=== PATIENT | male | born 1980 | race Caucasian/White ===

== ENCOUNTER 2021-08-02 10:56 | Emergency (ER) | payer OTHER ==
[~2021-08-02] VITALS: Ht 172.7 cm; Wt 115.9 kg
[2021-08-02] MEDS ORDERED: GLIMEPIRIDE1 MG PO (12:31)
[2021-08-02] MEDS ORDERED: METFOMIN HYDRO850 MG PO (12:32)
[2021-08-02] MEDS ORDERED: NORVASC 10MG10 MG PO (12:32)
[2021-08-02] MEDS ORDERED: PRAVASTATIN SOD40 MG PO (12:32)
[2021-08-02] MEDS ORDERED: LISINOPRIL AND1 TA1 PO (12:32)
[2021-08-02] MEDS ORDERED: PRILOSEC OTC20 MG PO (12:33)
[2021-08-02 12:59] LABS: BASO # 0.03 K/mm3 (0.02-0.10); EOS # 0.08 K/mm3 (0.04-0.40); EOS % 1.1 % (0.0-4.0); HEMATOCRIT 45.3 % (42.0-52.0); HEMOGLOBIN 15.6 g/dL (13.5-18.0); LYMPH# 1.92 K/mm3 (1.50-4.00); MEAN CELL VOLUME 81 fl (78-100); MEAN CORPUSCULAR HEMOGLOBIN 28 pg (27-31); MEAN CORPUSCULAR HGB CONC 34 g/dL (33-37); MONO # 0.73 K/mm3 (0.20-0.80); NEU # 4.25 K/mm3 (1.40-6.50); PLATELET COUNT 255 K/mm3 (130-400); RED BLOOD COUNT 5.61 M/mm3 (4.20-5.60); RED CELL DISTRIBUTION WIDTH 11.8 % (11.5-14.5)
[2021-08-02 13:01] LABS: URINE WBC 0 /hpf (0-3)
[2021-08-02 13:18] LABS: ALBUMIN 4.5 g/dL (3.5-5.0); POTASSIUM 4.2 mmol/L (3.5-5.1)
[2021-08-02 13:20] LABS: CALCIUM 9.9 mg/dL (8.3-10.5)
[2021-08-02 13:21] LABS: TOTAL PROTEIN 7.4 g/dL (6.4-8.3)
[2021-08-02 13:22] LABS: URINE APPEARANCE CLEAR; URINE BILIRUBIN NEGATIVE (NEGATIVE); URINE BLOOD NEGATIVE (NEGATIVE); URINE COLOR YELLOW; URINE KETONE NEGATIVE (NEGATIVE); URINE LEUKOCYTE ESTERASE NEGATIVE (NEGATIVE); URINE NITRATE NEGATIVE (NEGATIVE); URINE PROTEIN(semi-quant) NEGATIVE (NEGATIVE); URINE UROBILINOGEN NORMAL (NORMAL)
[2021-08-02 13:23] LABS: TOTAL BILIRUBIN 0.4 mg/dL (0.2-1.2)
[2021-08-02] MEDS ORDERED: MORGIDOX 1X100100 MG PO (14:17)
[2021-08-02 14:25] VITALS: BP 137/84
[2021-08-05 09:28] LABS: ANAPLASMA PHAGOCYTOPHILUM PCR Negative (Negative); EHRLICHIA CHAFFEENSIS AB PCR Negative (Negative); EHRLICHIA EWINGII/CANIS PCR Negative (Negative)
== END 2021-08-02 14:25 | disposition home or self-care (01) ==
LOC: ED 10:56
PROVIDERS: Physician Assistant
DX: T14.8XXA Other injury of unspecified body region, initial encounter (principal); R53.83 Other fatigue; Z28.311 Partially vaccinated for COVID-19; W57.XXXA Bitten or stung by nonvenomous insect and other nonvenomous arthropods, initial encounter
CPT/HCPCS: J7030